=== PATIENT | male | born 1945 | race Caucasian/White ===

== ENCOUNTER → 2016-03-20 08:59 | Outpatient (CLI) | payer MEDICARE, OTHER ==
[2011-05-05 07:59] VITALS: BMI 26.5
[~2016-03-20 08:59] MED LIST: CABOZANTINIB 40 MG PO; HYDROCODONE-APA1 TAB PO; INLYTA 5 MG PO; NORVASC10 MG PO; ZOCOR20 MG PO
[2016-04-27 12:26] VITALS: BMI 19.8
== END | disposition home or self-care (01) ==
LOC: D.CT 08:59
DX: C64.9 Malignant neoplasm of unspecified kidney, except renal pelvis (principal)

== ENCOUNTER 2016-04-26 14:50 | Observation (INO) | payer MEDICARE, OTHER ==
[~2016-04-26] VITALS: Ht 177.8 cm; Wt 62.6 kg
[2016-04-26 15:45] VITALS: BP 116/72; BMI 19.8
[2016-04-26 16:01] VITALS: BP 116/72
--- NOTE | 2016-04-26 17:00 | NUR ---
INSERTED 18FR NAJERA WITH SLIGHT RESISTANCE MET. PT DRAINED 1100 OUTPUT OF VERY DARK RED/PURPLISH URINE WITH NOTED CLOTS. PT VERBALIZED IMMEDIATE RELIEF AND VOICED THANKS. PT NOW RESTING WITH SPOUSE AT BEDSIDE NO FURTHER NEEDS AT THIS TIME.
[2016-04-26 17:44] LABS: APTT 42.9 SECONDS (22.8-39.4); INR 1.15 (0.85-1.17); PROTIME 14.6 SECONDS (11.6-15.0)
--- NOTE | 2016-04-26 18:38 | NUR ---
EKG COMPLETED AND COPY PLACED IN CHART. SURGERY CALLED TO PRE-OP PT AND PREOP MEDS WERE GIVEN. PT CHANGED INTO GOWN AND READY TO GO TO SURGERY. NO FURTHER NEEDS AT THIS TIME.
--- NOTE | 2016-04-26 18:53 | NUR ---
PT GONE TO OR.
[2016-04-26 21:11] VITALS: BP 134/72
[2016-04-27] VITALS: BP 119/66
[2016-04-27] MEDS ORDERED: ZOCOR20 MG PO (03:26)
[2016-04-27] MEDS ORDERED: HYDROCODONE-APA1 TAB PO (03:27)
[2016-04-27] MEDS ORDERED: NORVASC10 MG PO (03:28)
[2016-04-27] MEDS ORDERED: CABOZANTINIB 40 MG PO (03:30)
[2016-04-27] MEDS ORDERED: INLYTA 5 MG PO (03:30)
[2016-04-27 04:00] VITALS: BP 125/74
[2016-04-27 05:53] LABS: HEMOGLOBIN 11.2 g/dL (13.5-17.5); MCH 27.5 pg (26.0-34.0); MCHC 30.3 g/dL (31.0-37.0); MCV 90.9 fL (80.0-100.0); MEAN PLATELET VOLUME 10.1 fL (7.4-10.4); RBC 4.07 10x6/uL (4.20-6.10); RDW 17.9 % (11.5-14.5); WBC 4.7 10x3/uL (4.8-10.8)
[2016-04-27 06:11] LABS: PLATELET COUNT 107 10x3/uL (130-400)
[2016-04-27 06:23] LABS: ALBUMIN 1.8 g/dL (3.4-5.0); ANION GAP 10.1 mmol/L (8-16); BILIRUBIN - TOTAL 0.7 mg/dL (0.2-1.3); CALCIUM 8.1 mg/dL (8.5-10.1); CARBON DIOXIDE 27.5 mmol/L (21.0-32.0); CREATININE - SERUM 1.2 mg/dL (0.6-1.3); POTASSIUM - SERUM 3.6 mmol/L (3.5-5.1); PROTEIN - SERUM 5.7 g/dL (6.4-8.2)
[2016-04-27 06:33] LABS: EOSINOPHILS 3 % (0-7); LYMPHOCYTES 15 % (15-50); MONOCYTES 3 % (2-11); NEUTROPHILS 79 % (40-80); PLATELET ESTIMATE DECREASED
[2016-04-27 07:41] VITALS: BP 130/65
[2016-04-27 11:15] VITALS: BP 147/74
--- NOTE | 2016-04-27 11:41 | OP ---
PATIENT NAME: ERICH FRIAS MEDICAL RECORD: [id number] :44 LOCATION:D.M2 D.2125 ADMISSION DATE:04/26/16 SURGEON: MOHINDER MELTON MD DATE OF OPERATION: 04/26/2016 SURGEON: Mohinder Melton MD ANESTHESIA: General anesthesia by Dr. Jones and Araon Bennett CRNA. PREOPERATIVE DIAGNOSES: Clot urinary retention, gross hematuria, and metastatic right renal cancer. FINDINGS: No bleeding from the prostate. No bladder tumors. No hematuria noted from either ureter. Bleeding has ceased for now. PROCEDURE: Cystoscopy, bladder clot evacuation. SPECIMENS: None. CLINICAL HISTORY: This is a 71-year-old male, who has known metastatic right renal cell carcinoma since 2013. It is metastatic to the right thyroid as well as to the liver and to the mesentery and left inguinal nodes. He is currently on IV chemotherapy to treat this. About 5 weeks ago, he had an episode of gross hematuria, which spontaneously cleared up. Two days ago, he again developed gross hematuria and last night, he reported passing blood clots. Today, he was seen by his oncologist and he reported that he was completely unable to void today. He was having a severe amount of discomfort. I saw him when he was admitted to the hospital in consultation. He had a very distended bladder up to the umbilicus. We inserted a Babcock catheter to try to drain his bladder and some clots and lot of dark bloody urine came out. Given his history, he is likely having bleeding from his right renal cell carcinoma. I scheduled him to have cystoscopy and bladder clot evacuation. He is not allergic to any medications. He was given Ancef 1 gram IV service promoter salesperson to the OR. DESCRIPTION OF THE PROCEDURE: The patient was given induction of general anesthesia. He was then placed into dorsal lithotomy position and prepped and draped. Uro-Jet lidocaine jelly was inserted into the urethra. A 21-Malawian cystoscope with 30-degree lens was used for visualization. The penile urethra was normal. There are no lesions or strictures there. Prostatic urethra shows some signs of BPH, but there is no active bleeding. Going into the bladder, we saw a large quantity of clots in the floor of the bladder. Using an ScoreBigik evacuator and normal saline irrigation, we got all these clots out of the patient. We then scoped the bladder thoroughly. No bladder tumors were seen. The left ureteral orifice was completely normal. We saw peristaltic waves releasing urine and these were clear. I observed the right ureteral orifice for some time, but I did not see any peristaltic wave of urine being released. At any rate, he does not seem to have any active bleeding right now. We took the scope out and inserted a 24-Malawian 3-way Babcock catheter. The balloon was inflated with 10 cc of sterile water. The catheter inflow port was plugged with a catheter plug. The catheter was put to bag drainage. If he starts to get bloody again in the near future, then we will start continuous bladder irrigation. I will also get interventional radiology to see him for an angiogram and embolization of the bleeding source. TRANSINT:[id number] Voice Confirmation ID: [id number] DOCUMENT ID: [id number] OPERATIVE REPORT [id number] ERICH FRIAS, MOHINDER Jay MD at 1141 CC: [id number] DICTATION DATE: 04/26/162039 DIAMOND CLEAVER: 04/27/16 0239 ADM IN [facility] [address] [place] [address]
[2016-04-27 12:26] VITALS: Ht 177.8 cm; Wt 62.6 kg
--- NOTE | 2016-04-27 13:38 | NUR ---
D/C PTS NAJERA ORDERED. PT HAD 1400ML ORANGISH YELLOW URINE DRAINED. PT NEEDS TO VOID BEFORE BEING DISCHARGED. PT SITTING UP IN BED WITH GIRLFRIEND AT BEDSIDE. NO FURTHER NEEDS AT THIS TIME. CL IN REACH. WILL CPOC.
--- NOTE | 2016-04-27 15:06 | NUR ---
PT REQUESTED AND WAS PROVIDED WITH PRN PAIN MEDICATION BEFORE IV BEING D/C. D/C PTS R.FA PIV WITH CATHETER TIP FULLY INTACT. PT URINATED CLEAR YELLOW URINE SINCE NAJERA WAS REMOVED AND IS READY TO SIGN DISCHARGE PAPERS.
== END 2016-04-27 15:46 | disposition home or self-care (01) ==
LOC: OBSVTIME 14:50 → D.M2 14:50 → D.SDCHOLD 14:50 → D.M2 15:17
PROVIDERS: ADMIT Internal Medicine Hematology & Oncology
DX: N32.89 Other specified disorders of bladder (principal); R31.0 Gross hematuria; R33.9 Retention of urine, unspecified; C64.1 Malignant neoplasm of right kidney, except renal pelvis; C78.7 Secondary malignant neoplasm of liver and intrahepatic bile duct; C77.4 Secondary and unspecified malignant neoplasm of inguinal and lower limb lymph nodes; C78.6 Secondary malignant neoplasm of retroperitoneum and peritoneum; C79.89 Secondary malignant neoplasm of other specified sites; I25.10 Atherosclerotic heart disease of native coronary artery without angina pectoris; Z95.1 Presence of aortocoronary bypass graft; I10 Essential (primary) hypertension; Z87.891 Personal history of nicotine dependence

== ENCOUNTER → 2016-06-05 07:59 | Outpatient (CLI) | payer MEDICARE, OTHER ==
[2016-04-27 12:26] VITALS: BMI 19.8
== END | disposition home or self-care (01) ==
LOC: D.CT 07:59
PROVIDERS: Internal Medicine Medical Oncology
DX: C64.9 Malignant neoplasm of unspecified kidney, except renal pelvis (principal); D50.8 Other iron deficiency anemias; D63.1 Anemia in chronic kidney disease; D64.81 Anemia due to antineoplastic chemotherapy

== ENCOUNTER → 2016-09-20 08:04 | Outpatient (CLI) | payer MEDICARE, OTHER ==
[2016-04-27 12:26] VITALS: BMI 19.8
[2016-09-20 08:46] LABS: CREATININE - SERUM 1.1 mg/dL (0.6-1.3)
== END | disposition home or self-care (01) ==
LOC: D.CT 08:04
PROVIDERS: Internal Medicine Medical Oncology
DX: C64.9 Malignant neoplasm of unspecified kidney, except renal pelvis (principal); C78.00 Secondary malignant neoplasm of unspecified lung; C79.51 Secondary malignant neoplasm of bone

== ENCOUNTER → 2016-12-18 08:26 | Outpatient (CLI) | payer MEDICARE, OTHER ==
[2016-04-27 12:26] VITALS: BMI 19.8
== END | disposition home or self-care (01) ==
LOC: D.CT 08:26
DX: D63.1 Anemia in chronic kidney disease (principal)

== ENCOUNTER → 2017-03-12 07:28 | Outpatient (CLI) | payer MEDICARE, OTHER ==
[2016-04-27 12:26] VITALS: BMI 19.8
== END | disposition home or self-care (01) ==
LOC: D.CT 07:28
DX: C64.9 Malignant neoplasm of unspecified kidney, except renal pelvis (principal)

== ENCOUNTER 2017-03-15 15:48 | Inpatient (IN) | payer MEDICARE, OTHER ==
[2016-04-27 12:26] VITALS: BMI 19.8
[2017-03-15 16:20] LABS: BASOPHILS 0.1 % (0-2); EOSINOPHILS 0.3 % (0-7); HEMATOCRIT 39.8 % (42.0-54.0); HEMOGLOBIN 13.5 g/dL (13.5-17.5); IMMATURE GRANULOCYTES 0.5 % (0-5); LYMPHOCYTES 5.5 % (15-50); MCH 36.3 pg (26.0-34.0); MCHC 33.9 g/dL (31.0-37.0); MONOCYTES 3.8 % (2-11); NEUTROPHILS 89.8 % (40-80); PLATELET COUNT 92 10x3/uL (130-400); RBC 3.72 10x6/uL (4.20-6.10); RDW 14.3 % (11.5-14.5); WBC 7.9 10x3/uL (4.8-10.8)
[2017-03-15 16:48] LABS: PLATELET ESTIMATE DECREASED
[2017-03-15 18:54] LABS: ALBUMIN 1.9 g/dL (3.4-5.0); BILIRUBIN - TOTAL 0.66 mg/dL (0.2-1.3); CARBON DIOXIDE 24.4 mmol/L (21.0-32.0); CREATININE - SERUM 1.4 mg/dL (0.6-1.3); PROTEIN - SERUM 6.1 g/dL (6.4-8.2)
[2017-03-15 18:57] LABS: ANION GAP 14.1 mmol/L (8-16)
[2017-03-15 18:58] LABS: CALCIUM 6.8 mg/dL (8.5-10.1); POTASSIUM - SERUM 2.5 mmol/L (3.5-5.1)
[2017-03-15 22:00] LABS: APPEARANCE CLEAR (CLEAR); COLOR DK YELLOW (YELLOW)
[2017-03-15 22:01] LABS: BILIRUBIN NEGATIVE (NEGATIVE); GLUCOSE NEGATIVE (NEGATIVE); KETONE NEGATIVE (NEGATIVE); NITRITE NEGATIVE (NEGATIVE); PROTEIN 2+ mg/dL (NEGATIVE); SPECIFIC GRAVITY 1.015 (1.005-1.020); UROBILINOGEN NORMAL (NORMAL)
[2017-03-15 22:07] LABS: BACTERIA FEW /hpf (NONE SEEN); EPITHELIAL CELLS 0-5 /hpf (0-5); RED CELLS - URINE 0-5 /hpf (0-5); WHITE CELLS - URINE 0-5 /hpf (0-5)
[2017-03-15 22:09] LABS: HYALINE CAST RARE /lpf (NONE SEEN)
== END 2017-03-16 03:55 | DRG 314 ==
LOC: D.ER 15:48 → D.SDCHOLD 23:30 → D.ICU 03-16 02:43 → D.SDCHOLD 03-16 02:43 → D.ICU 03-16 02:43 → D.SDCHOLD 03-16 02:43
PROVIDERS: Emergency Medicine; Physician Assistant Medical
DX: I95.9 Hypotension, unspecified (principal); J18.9 Pneumonia, unspecified organism; J96.90 Respiratory failure, unspecified, unspecified whether with hypoxia or hypercapnia; C64.9 Malignant neoplasm of unspecified kidney, except renal pelvis; N39.0 Urinary tract infection, site not specified; C78.7 Secondary malignant neoplasm of liver and intrahepatic bile duct; N17.9 Acute kidney failure, unspecified; E86.0 Dehydration; E87.6 Hypokalemia